=== PATIENT | female | born 1990 | race Hispanic/Latino ===

== ENCOUNTER 2017-05-29 12:32 | Outpatient (CLI) | payer OTHER | END 2017-05-29 12:33 | disposition home or self-care (01) | LOC: BICCT 12:32 | PROVIDERS: ATTEND Physician Assistant Surgical | DX: M51.17 Intervertebral disc disorders with radiculopathy, lumbosacral region (principal); M99.53 Intervertebral disc stenosis of neural canal of lumbar region; M54.12 Radiculopathy, cervical region | CPT/HCPCS: 72050; 72110; 72131; 72141; 72148 ==

== ENCOUNTER 2017-07-12 05:54 | Inpatient (IN) | payer OTHER ==
[2017-07-11 16:18] VITALS: BMI 32.9
[2017-07-12] MEDS ORDERED: Sodium Chloride 0.9% 10 ML ONE (06:24)
[2017-07-12] MEDS ORDERED: Thrombin 5000 UNITS/5 ML VIAL ONE (06:24)
[2017-07-12] MEDS ORDERED: Bacitracin Zinc Ointment 30 gm TUBE ONE (06:24)
[2017-07-12 06:43] LABS: Hemoglobin 13.7 g/dL (12.0-16.0); Mean Corpuscular HGB CONC 36.1 g/dL (32.0-36.0); Mean Corpuscular Hemoglobin 31.4 pg (27.0-31.0); Mean Corpuscular Volume 87.2 fl (81.0-99.0); Mean Platelet Volume 8.4 fL (7.4-10.4); Platelet Count 259 thou/uL (130-400); RBC Distribution Width 11.5 % (11.5-14.5); Red Blood Cell (RBC) Count 4.35 mill/uL (4.20-5.40); White Blood Cell (WBC) Count 9.8 thou/uL (4.8-10.8)
[2017-07-12 06:51] LABS: INR-International Normal Ratio 1.2; PTT 30.7 SEC (22.9-36.1); Prothrombin Time 15.2 SEC (12.0-14.7)
[2017-07-12] MEDS ORDERED: Fentanyl 250 MCG/5 ML VIAL ONE (07:07)
[2017-07-12 07:11] LABS: Anion Gap 11 mmol/L (10-20); BUN (Urea Nitrogen) 10 mg/dL (7.0-18.7); Calc. Creatinine Clearance 153 mL/min (70-130); Calcium 9.3 mg/dL (7.8-10.44); Carbon Dioxide 27 mmol/L (22-29); Chloride 106 mmol/L (98-107); Estimated GFR-MDRD Greater than 90; Glucose 91 mg/dL (70-105); Potassium 4.4 mmol/L (3.5-5.1); Sodium 140 mmol/L (136-145)
[2017-07-12] MEDS ORDERED: Midazolam HCl 2 mg/2 ml Vial ONE (07:13)
[2017-07-12] MEDS ORDERED: Scopolamine 1.5 mg/72 hour Patch ONE (07:13)
[2017-07-12] MEDS ORDERED: CEFAZOLIN/Water 2 GM/20 ML SYRINGE ONE (07:13)
[2017-07-12] MEDS ORDERED: Metoclopramide HCl 10 MG/2 ML VIAL ONE ×2 (09:06→12:54)
--- NOTE | 2017-07-12 12:38 | OP ---
DATE OF PROCEDURE: 07/12/2017 OR: OR #11. WOUND TYPE: Type 1 wound. SURGEON: Nico Urias M.D. SUPERVISOR FUSING ROOM: David Brambila PA-C. PREPROCEDURE DIAGNOSES: Grade 1/2 lumbar spondylolisthesis with L5 spondylolysis with low back and l eg pain. POSTPROCEDURE DIAGNOSES: Grade 1/2 /lumbar spondylolisthesis with L5 spondylolysis with low back and leg pain. PROCEDURE: 1. L5-S1 laminectomy, facetectomies with foraminotomies and diskectomy for placement of interbody sp acer at L5-S1 for arthrodesis (the spacer was packed with local bone autograft obtained from same in cision, and BMP.) 2. Posterolateral fusion L5-S1 with BMP and autograft obtained from the same incision. 3. Placement of screw mindi fixation L5-S1 for instrumented fusion. DESCRIPTION OF PROCEDURE: After informed consent was obtained from the patient, the patient brought to OR 11. Proper patient pause and identification was carried out. She was placed under excellent g eneral endotracheal anesthesia and positioned prone on the OR table. Her L5-S1 spondylolisthesis was quite obvious at this point. We then made a linear vahe over the L5-S1 segment. This area was ster ilely cleansed, prepared, and draped. Proper patient pause and identification was carried out. The wound was then opened with a combination of sharp, monopolar and blunt dissection. We exposed the L5 -S1 dorsal spines lamina, the L5 pars defects along with the transverse processes of L5 bilaterally a nd the sacral ala bilaterally. The lumbar L5-S1 laminectomy, facetectomies, and foraminotomies over the L5-S1 nerve roots was then performed and proceeding from the left side in the axilla of the left L5 nerve root and over the shoulder of the left S1 nerve root we opened the disk space and did a disk ectomy. The endplates were prepared, an interbody spacer of appropriate dimension was placed at L5-S 1 for intervertebral arthrodesis, interbody space was packed with BMP and autograft for arthrodesis. We then turned our attention to placement of screw mindi fixation at L5-S1. This was done with fluoro scopy and anatomic landmarks. I was satisfied with our construct. A postoperative CT was then perfo rmed and I was satisfied with our construct based on the CT as well. Rods were placed, final tighten ing occurred and copious irrigation occurred throughout. We then decorticated the posterolateral gut ters for arthrodesis and BMP was packed in this region. DuraSeal was placed over the dural tube for protection, although there was no spinal fluid leak. Copious irrigation and hemostasis occurred thro ughout. We then closed the wound in anatomic layers following the sprinkling of vancomycin powder. I was pleased with the correction of her deformity. The patient then emerged from anesthesia.
[2017-07-12] MEDS ORDERED: Fentanyl 100 MCG/2 ML VIAL ONE ×2 (12:51→13:31)
[2017-07-12] MEDS ORDERED: Promethazine HCl 25 MG/ML VIAL IM PRN (12:53)
[2017-07-12] MEDS ORDERED: Morphine 4 MG/ML VIAL SLOW IVP PRN (12:53)
[2017-07-12] MEDS ORDERED: Bisacodyl 10 MG SUPP PR PRN (12:53)
[2017-07-12] MEDS ORDERED: Ondansetron HCl/PF 4 MG/2 ML Vial IVP PRN (12:53)
[2017-07-12] MEDS ORDERED: Acetaminophen 325 MG TAB PO PRN (12:53)
[2017-07-12] MEDS ORDERED: Mag-Al 1200 mg/1200 mg/30 ML UDCUP PO PRN (12:53)
[2017-07-12] MEDS ORDERED: Milk Of Magnesia 30 ML UDCUP PO PRN (12:53)
[2017-07-12] MEDS ORDERED: Fleet Enema 133 ML BOT PR PRN (12:53)
[2017-07-12] MEDS ORDERED: PROPOFOL 200 MG/20 ML VIAL ONE (12:54)
[2017-07-12] MEDS ORDERED: Glycopyrrolate 0.2 MG/ML 5 ML SYRINGE ONE (12:54)
[2017-07-12] MEDS ORDERED: Lidocaine 1% PF 5 ML VIAL ONE (12:54)
[2017-07-12] MEDS ORDERED: Dexamethasone 20 MG/5 ML VIAL ONE (12:54)
[2017-07-12] MEDS ORDERED: Ketorolac Tromethamine 30 MG/ML VIAL ONE (12:54)
[2017-07-12] MEDS ORDERED: HYDROmorphone 0.5 MG/0.5 ML SYRINGE ONE (12:56)
[2017-07-12] MEDS: HYDROcodone/Acetaminophen 7.5/325 mg Tablet PO PRN ×2 (14:54→18:52)
[2017-07-12] MEDS: tiZANidine HCl 4 MG TAB PO PRN (14:54)
[2017-07-12] MEDS: Sodium Chloride 0.9% 1,000 ML IV SCH (14:56)
[2017-07-12] MEDS: CEFAZOLIN/Water 2 GM/20 ML SYRINGE SLOW IVP SCH (15:50)
--- NOTE | 2017-07-12 16:21 | EKG ---
Test Reason : PREOP Blood Pressure : / mmHG Vent. Rate : 063 BPM Atrial Rate : 063 BPM P-R Int : 130 ms QRS Dur : 068 ms QT Int : 438 ms P-R-T Axes : 045 -09 000 degrees QTc Int : 448 ms Normal sinus rhythm T wave abnormality, consider inferior ischemia Normal ECG Confirmed by QUAN ROBERTS ([id number]) on 07/12/2017 4:20:46 PM Referred By: JOSÉ Confirmed By:QUAN ROBERTS
[2017-07-13] MEDS: HYDROcodone/Acetaminophen 7.5/325 mg Tablet PO PRN ×3 (00:06→10:13)
[2017-07-13] MEDS: CEFAZOLIN/Water 2 GM/20 ML SYRINGE SLOW IVP SCH ×4 (00:29→23:36)
[2017-07-13] MEDS: Sodium Chloride 0.9% 1,000 ML IV SCH ×2 (02:04→15:45)
[2017-07-13] MEDS: tiZANidine HCl 4 MG TAB PO PRN ×2 (06:16→18:27)
--- NOTE | 2017-07-13 08:46 | PRG ---
DATE OF SERVICE: 07/13/2017 Ms. Padilla is now postoperative day #1, having undergone L5-S1 posterior lumbar laminectomy, fusion, a nd interbody grafting the L5-S1 level. The patient overall states she is doing very well postoperati vely. Her main complaint today is back pain. She does complain of some overall feeling of deconditi oning into the bilateral lower extremities, but denies leg pain. She has good strength in the bilate ral lower extremities with intact sensation to light touch throughout. She is currently wearing her TLSO brace. I have reminded her that she does not have to wear this in bed, but it may help with renee e pain control over the next several days. Her Goddard catheter has been removed and she has not yet u rinated. We will check back on her later this afternoon for possible discharge later today. We did discuss that staying 1 more day would be okay and again we will reevaluate her at that time. Otherwi se, she is very pleased with her outcome postoperatively. Please call with any questions.
[2017-07-13] MEDS: FLUoxetine HCl 10 MG CAP PO SCH (10:07)
[2017-07-13] MEDS: NORGESTIMATE ETHINYL ESTRADIOL PO SCH (10:14)
[2017-07-13] MEDS ORDERED: Acetaminophen 1,000 MG in Premix Bag 1 BAG IVPB SCH (15:45)
[2017-07-13] MEDS ORDERED: Ondansetron ODT 4 MG TAB PO PRN (17:50)
[2017-07-13] MEDS ORDERED: Ondansetron ODT 4 MG TAB PO SCH (18:00)
[2017-07-13] MEDS: traMADol HCl 50 MG TAB PO PRN (20:56)
[2017-07-14] MEDS: Acetaminophen/Codeine 30-300mg Tablet PO PRN ×2 (02:20→06:10)
[2017-07-14] MEDS: traMADol HCl 50 MG TAB PO PRN ×4 (03:48→21:23)
[2017-07-14] MEDS: Sodium Chloride 0.9% 1,000 ML IV SCH ×2 (06:08→15:19)
[2017-07-14] MEDS: CEFAZOLIN/Water 2 GM/20 ML SYRINGE SLOW IVP SCH ×2 (06:10→15:13)
[2017-07-14] MEDS: FLUoxetine HCl 10 MG CAP PO SCH (08:57)
[2017-07-14] MEDS: NORGESTIMATE ETHINYL ESTRADIOL PO SCH (09:01)
[2017-07-14] MEDS: tiZANidine HCl 4 MG TAB PO PRN ×3 (09:03→21:24)
[2017-07-14] MEDS: HYDROcodone/Acetaminophen 5/325 mg Tablet PO PRN ×4 (10:22→22:22)
--- NOTE | 2017-07-14 13:13 | PRG ---
DATE OF SERVICE: 07/14/2017 SUBJECTIVE: Ms. Padilla is postoperative day #2 from lumbar laminectomy, interbody and posterior later al fusion at the lumbosacral junction. I reviewed her imaging with her postoperatively and she is ce rtainly coming along. Pain management has been the biggest issue. Her radicular pain is improved. On her exam, she is moving her extremities with good strength. Her wound is healing satisfactorily. We will plan for dismissal likely today as long as we can make sure pain management is under control .
[2017-07-15] MEDS: HYDROcodone/Acetaminophen 5/325 mg Tablet PO PRN ×4 (02:34→14:43)
[2017-07-15 08:11] VITALS: TEMP 98.9
[2017-07-15] MEDS: FLUoxetine HCl 10 MG CAP PO SCH (09:24)
[2017-07-15] MEDS: NORGESTIMATE ETHINYL ESTRADIOL PO SCH (09:29)
[2017-07-15] MEDS: Sodium Chloride 0.9% 1,000 ML IV SCH (09:30)
[2017-07-15 12:12] VITALS: BP 115/77
--- NOTE | 2017-07-17 11:52 | PRG ---
DATE OF SERVICE: 07/15/2017 SUBJECTIVE: Mrs. Padilla is postop day 3, following lumbosacral stabilization and decompression. Her leg pain has improved compared to before surgery. She is mobilizing with good strength in her lower extremities, had been no issues with her wound. Muscle spasms have been an issue not unexpected. I talked to her about heat and ice, and she also notes she has had hallucinations with the muscle relaxants. I think minimizing these as much as possible in pursuing more heat and ice will be beneficial for the patient. We will let her discharge. STERLING
== END 2017-07-15 15:22 | disposition home or self-care (01) | DRG 460 ==
LOC: SURG A 05:54
PROVIDERS: ADMIT Surgery; ATTEND Surgery
PROC: 0SG3071 Fusion of Lumbosacral Joint with Autologous Tissue Substitute, Posterior Approach, Posterior Column, Open Approach (ICD-10-PCS; principal; 2017-07-12)
PROC: 0ST40ZZ Resection of Lumbosacral Disc, Open Approach (ICD-10-PCS; 2017-07-12)
DX: M43.17 Spondylolisthesis, lumbosacral region (principal); M47.26 Other spondylosis with radiculopathy, lumbar region
CPT/HCPCS: 36415; 76001; 80048; 85027; 85610; 85730; 93005; 93010; A4216; C1713; G8978-GP-CK; G8979-GP-CJ; J0131; J1100; J1170; J1885; J2001; J2250; J2704; J2765; J3010; J3370; J3490; Q0162

== ENCOUNTER 2017-08-27 09:04 | Outpatient (CLI) | payer OTHER ==
--- NOTE | 2017-08-27 10:39 | RAD ---
LUMBAR SPINE 2 VIEWS: DATE: 08/27/17. COMPARISON: 04/28/15. HISTORY: Low back pain, prior back surgery, right-sided radiculopathy. FINDINGS: Five lumbar-type vertebral bodies are present. Intervertebral disk device noted at the l5-S1 level. Bilateral pedicle screws present at L5 and S1 with vertically oriented interlocking rods. No eviden ce for hardware failure. Lateral imaging demonstrates anterolisthesis of L5 on S1 measuring in the 6 mm range. No acute osseo us abnormality. IMPRESSION: Postoperative change at the lumbosacral junction with mild anterolisthesis of L5 on S1. POS: BRE
== END 2017-08-27 09:05 | disposition home or self-care (01) ==
LOC: TBSIIMAG 09:04
PROVIDERS: ATTEND Surgery
DX: M54.5 Low back pain (principal); M43.17 Spondylolisthesis, lumbosacral region; Z98.890 Other specified postprocedural states
CPT/HCPCS: 72100